=== PATIENT | male | born 1960 | race Caucasian/White ===

== ENCOUNTER 2019-07-28 09:00 | Outpatient (RCR) | payer BC ==
[2014-01-02 12:21] VITALS: BP 143/89
[~2019-07-28 09:00] MED LIST: NORCO 325 MG-51 TAB PO
== END 2019-07-28 09:20 | disposition still patient (30) ==
LOC: PT 09:00
DX: Z98.890 Other specified postprocedural states (principal)

== ENCOUNTER 2021-04-14 20:56 | Emergency (ER) | payer BC ==
[~2021-04-14] VITALS: Ht 182.9 cm; Wt 115.9 kg
[2021-04-14] MEDS ORDERED: LIPITOR 10M10 MG/TAB PO (21:23)
[2021-04-14] MEDS ORDERED: OMEPRAZOLE20 M2 PO (21:24)
[2021-04-14] MEDS ORDERED: NEBIVOLOL HCL5 MG PO (21:24)
[2021-04-14] MEDS ORDERED: VALSARTAN80 MG PO (21:24)
[2021-04-14 22:08] LABS: HEMATOCRIT 40.4 % (42.0-52.0); HEMOGLOBIN 14.1 g/dL (13.5-18.0); MEAN CELL VOLUME 91 fl (78-100); MEAN CORPUSCULAR HEMOGLOBIN 32 pg (27-31); MEAN CORPUSCULAR HGB CONC 35 g/dL (33-37); MEAN PLATELET VOLUME 9.3 fl (7.4-10.4); PLATELET COUNT 209 K/mm3 (130-400); RED BLOOD COUNT 4.45 M/mm3 (4.20-5.60); RED CELL DISTRIBUTION WIDTH 12.8 % (11.5-14.5); WHITE BLOOD COUNT 6.2 K/mm3 (4.8-10.8)
[2021-04-14 22:22] LABS: ALBUMIN 4.2 g/dL (3.4-4.8); POTASSIUM 3.8 mmol/L (3.5-5.1); SODIUM 132 mmol/L (136-145)
[2021-04-14 22:23] LABS: CALCIUM 9.3 mg/dL (8.3-10.5)
[2021-04-14 22:24] LABS: GLUCOSE 109 mg/dL (75-110)
[2021-04-14 22:25] LABS: CARBON DIOXIDE 21 mmol/L (23-31)
[2021-04-14 22:26] LABS: TOTAL BILIRUBIN 0.6 mg/dL (0.2-1.2)
[2021-04-14 22:30] LABS: AST-SGOT 22 U/L (5-34)
[2021-04-14 22:31] LABS: ALT/SGPT 39 U/L (0-55)
[2021-04-14 22:32] LABS: LIPASE 16 U/L (8-78)
[2021-04-14] MEDS ORDERED: ADULT LOW DOSE81 MG PO (22:32)
[2021-04-14 22:38] LABS: TROPONIN-I < 0.030 ng/mL (<0.030)
[2021-04-14 22:44] LABS: LYMPHOCYTE 10 % (20-51); MONOCYTE 10 % (3-10); NEUTROPHILS 79 % (42-75)
[2021-04-14 23:26] VITALS: BP 142/89
== END 2021-04-14 23:26 | disposition home or self-care (01) ==
LOC: ED 20:56
PROVIDERS: Family Medicine
DX: K21.9 Gastro-esophageal reflux disease without esophagitis (principal); I10 Essential (primary) hypertension; E78.5 Hyperlipidemia, unspecified